=== PATIENT | male | born 1950 | race Caucasian/White ===

== ENCOUNTER 2016-08-15 06:32 | Emergency (ER) | payer OTHER ==
[~2016-08-15] VITALS: Ht 170.2 cm; Wt 79.4 kg
[~2016-08-15 06:32] MED LIST: AMLODIPINE-ATO1 EAC6 PO; COLACE100 M1 PO; FENOFIBRATE145 M1 PO; FERROUS SULFAT325 M3 PO; JENTADUETO 2.51 EAC2 PO; LISINOPRIL20 M1 PO; METOPROLOL SUC100 M2 PO; OMEPRAZOLE20 M2 PO
--- NOTE | 2016-08-15 06:43 | ED SKIN/ALLERGY COMPLAINT ---
History of Present Illness General Chief Complaint: Animal/Insect Bite Stated Complaint: TICK IN L LEG Source: patient Exam Limitations: no limitations Vital Signs & Intake/Output Vital Signs & Intake/Output Vital Signs Date Time Temp Pulse Resp B/P Pulse O2 O2 Flow FiO2 Ox Delivery Rate 08/15 0726 198/98 08/15 0639 97.7 83 20 220/100 96 Room Air Allergies Coded Allergies: No Known Allergies (09/07/15) Reconcile Medications Amlodipine/Atorvastatin (Amlodipine-Atorvast 5-10 MG) 1 EACH TABLET 1 TAB PO DAILY HEART (Reported) Docusate Sodium (Colace) 100 MG CAPSULE 1 CAP PO BID constipation Fenofibrate Nanocrystallized (Fenofibrate) 145 MG TABLET 1 TAB PO DAILY CHOLESTEROL (Reported) Ferrous Sulfate 325 MG TABLET 1 TAB PO BID anemia Linagliptin/Metformin HCl (Jentadueto 2.5 MG-1000 MG Tab) 1 EACH TABLET 1 TAB PO BID DM (Reported) Lisinopril 20 MG TABLET 1 TAB PO DAILY HEART (Reported) LAST GIVEN 02/03/16 AT 0953 Metoprolol Succinate 100 MG TAB.ER.24H 1 TAB PO DAILY HEART (Reported) Omeprazole 20 MG CAPSULE. 1 CAP PO BID antacid Triage Nurses Notes Reviewed? yes Onset: Abrupt Duration: hour(s): Timing: single episode today Severity: mild Location: POSTERIOR LEFT THIGH Possible Factors: insect bite No Modifying Factors: none Associated Symptoms: "MY PULLED IT OFF" HPI: 66 yo gentleman h/o hypertension, presents with a tick bite in his posterior thigh. "I felt it last night and my pulled it off." The thick had been in his leg only a few hours. He notes no pain, swelling, joint pain, arthralgia, fevers. He is otherwise well. Past History Travel History Traveled to [place] past 21 day No Medical History Any Pertinent Medical History? 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 No Review of Systems Review of Systems Constitutional: Reports: no symptoms. EENTM: Reports: no symptoms. Respiratory: Reports: no symptoms. Cardiovascular: Reports: no symptoms. GI: Reports: no symptoms. Genitourinary: Reports: no symptoms. Musculoskeletal: Reports: no symptoms. Skin: Reports: no symptoms. Neurological/Psychological: Reports: no symptoms. Hematologic/Endocrine: Reports: no symptoms. Immunologic/Allergic: Reports: no symptoms. All Other Systems: Reviewed and Negative Physical Exam Physical Exam General Appearance: well developed/nourished, mild distress Head: atraumatic Eyes: Bilateral: PERRL, EOMI. Ears, Nose, Throat: normal pharynx, normal ENT inspection, hearing grossly normal Neck: normal inspection, supple Respiratory: normal breath sounds Cardiovascular: regular rate/rhythm Gastrointestinal: soft, non-tender Back: normal inspection Extremities: normal range of motion, no edema, left posterior thigh with 2cm area of erythema, but no induration or tenderness to palpation. otherwise benign appearing. Neurologic/Psych: awake, alert, oriented x 3, normal mood/affect Lymphatic: no anterior cervical francisco Progress Differential Diagnosis: tick bite Plan of Care: Current Medications Sig/Buffy Start time Last Medication Dose Stop Time Status Admin Doxycycline Hyclate 200 MG ONCE ONE 08/15 644 AC (Vibramycin) 08/15 645 Departure Departure Disposition: HOME OR SELF CARE Condition: Stable Clinical Impression Primary Impression: Tick bite Secondary Impressions: Hypertension Referrals: TASHA GARCIA,ARLETH Villatoro (PCP/Family) Departure Forms: Customer Survey General Discharge Information Comments 08/15/16, 7:32AM... pt feels well... slight decrease in his blood pressure. he does not wish to stay for further evaluation. discussed at length... pt to receive metoprolol 50mg and he will follow up with his pmd. he notes, "My blood pressure is always high when I'm at the hospital.... I want to go home." Pt also received doxy 200mg for lyme prophylaxis.
[2016-08-15 07:37] VITALS: BP 184/93
== END 2016-08-15 07:42 ==
LOC: ERH 06:32
DX: S70.362A Insect bite (nonvenomous), left thigh, initial encounter (principal); W57.XXXA Bitten or stung by nonvenomous insect and other nonvenomous arthropods, initial encounter